=== PATIENT | male | born 1975 | race Caucasian/White ===

== ENCOUNTER 2017-04-27 16:30 | Emergency (ER) | payer SELFPAY ==
[2017-04-27 17:44] VITALS: BP 129/89
--- NOTE | 2017-04-27 20:32 | Emergency Department Report ---
ED Extremity Problem HPI - General Chief complaint: Extremity Problem,Nontraumatic Stated complaint: LEFT FOOT PAIN Time Seen by Provider: 04/27/17 20:12 Source: patient Mode of arrival: Ambulatory Limitations: No Limitations - History of Present Illness Initial comments: Patient is a 41-year-old male who is presenting with left lower extremity swelling patient has had some mild swelling at the ankle for approximately one month however he states that his leg has swollen a little last week dramatically patient has some red splotchiness on the leg. Patient states there is no pain management no trauma or injury. - Related Data Allergies Allergy/AdvReac Type Severity Reaction Status Date / Time No Known Allergies Allergy Unverified 04/27/17 17:38 ED Review of Systems ROS: Stated complaint: LEFT FOOT PAIN Other details as noted in HPI Comment: All other systems reviewed and negative ED Past Medical Hx - Past Medical History Hx CVA: (left side deficits) - Surgical History Past Surgical History?: No - Social History Smoking Status: Current Every Day Smoker Substance Use Type: Alcohol ED Physical Exam - General Limitations: No Limitations General appearance: alert, in no apparent distress - Head Head exam: Present: atraumatic, normocephalic - Eye Eye exam: Present: normal appearance - ENT ENT exam: Present: mucous membranes moist - Neck Neck exam: Present: normal inspection - Respiratory Respiratory exam: Present: normal lung sounds bilaterally. Absent: respiratory distress - Cardiovascular Cardiovascular Exam: Present: regular rate, normal rhythm. Absent: systolic murmur, diastolic murmur, rubs, gallop - GI/Abdominal GI/Abdominal exam: Present: soft, normal bowel sounds - Rectal Rectal exam: Present: deferred - Extremities Exam Extremities exam: Present: normal inspection, other (left lower extremity has 2 + edema to the calf ankle and foot. With some mild erythematous blotchy lesions ) - Back Exam Back exam: Present: normal inspection - Neurological Exam Neurological exam: Present: alert, oriented X3 - Psychiatric Psychiatric exam: Present: normal affect, normal mood - Skin Skin exam: Present: warm, dry, intact, normal color. Absent: rash ED Course Vital Signs 04/27/17 17:38 Temperature 98.5 F Pulse Rate 80 Respiratory 14 Rate Blood Pressure 129/89 O2 Sat by Pulse 99 Oximetry ED Medical Decision Making - Medical Decision Making Patient was seen after the time that the Dopplers can be done. Emergent department patient has a outpatient Doppler study ordered and will return tomorrow for this study Critical care attestation.: If time is entered above; I have spent that time in minutes in the direct care of this critically ill patient, excluding procedure time. ED Disposition Clinical Impression: Lower extremity edema Disposition: DC-01 TO HOME OR SELFCARE Is pt being admited?: No Does the pt Need Aspirin: No Condition: Stable Additional Instructions: An ultrasound with the vascular lab has been ordered they will call you in the morning to set up a time for you to get this study
[2017-04-27] MEDS ORDERED: LOVENOX SUB-Q SCH (22:00)
== END 2017-04-27 22:07 | disposition home or self-care (01) ==
LOC: ED 16:30
DX: R60.0 Localized edema (principal); F17.200 Nicotine dependence, unspecified, uncomplicated
CPT/HCPCS: 96372; 99282; J1650

== ENCOUNTER 2017-04-28 14:45 | Outpatient (CLI) | payer SELFPAY ==
--- NOTE | 2017-05-03 08:23 | Vascular Lab Report ---
Left Lower Extremity Venous Duplex Study: Reason for Exam: Pain and swelling of the left lower extremity. Comments on the Right: A limited duplex study was done of the proximal veins of the right lower extremity. All veins visualized are freely compressible without evidence of internal echogenicity. Flow is spontaneous and phasic throughout. No evidence of acute or chronic thrombus is seen in any of the vessels visualized. Comments on the Left: All veins visualized are freely compressible without evidence of internal echogenicity. Flow is spontaneous and phasic throughout. No evidence of acute or chronic thrombus is seen in any of the vessels visualized. Nonspecific soft tissue changes are seen in the left ankle. This may be a hematoma. Impression: No evidence of acute or chronic deep venous thrombosis in the left lower extremity. Possible hematoma around the left ankle.
== END 2017-04-28 14:46 | disposition home or self-care (01) ==
LOC: VAS 14:45
PROVIDERS: ATTEND Emergency Medicine
DX: M79.662 Pain in left lower leg (principal); R60.9 Edema, unspecified

== ENCOUNTER 2018-06-18 11:28 | Emergency (ER) | payer SELFPAY ==
[2018-06-18 11:40] VITALS: BP 136/93
--- NOTE | 2018-06-18 11:40 | Emergency Department Report ---
Blank Doc - Documentation Documentation: This is a 42-year-old male that presents to the ED with right sided head contu dick around 5 AM. STated had a trip and fall and now needs a work excuse. Denies any headache or pain. Patient has history of stroke. This initial assessment/diagnostic orders/clinical plan/treatment(s) is/are subject to change based on patient's health status, clinical progression and re- assessment by fellow clinical providers in the ED. Further treatment and workup at subsequent clinical providers discretion. Patient/guardians urged not to elope from the ED as their condition may be serious if not clinically assessed and managed. Initial orders include: 1- Patient sent to [facility] for further evaluation and treatment 2- CT head
--- NOTE | 2018-06-18 13:34 | Emergency Department Report ---
ED Fall HPI - General Chief Complaint: Fall Stated Complaint: RT SIDE HEAD PAIN Time Seen by Provider: 06/18/18 11:37 Source: patient Mode of arrival: Ambulatory - History of Present Illness Initial Comments: he is a 42-year-old male who presents to ED status post fall that happened this morning while his work. Patient states he was grabbing his lunch box and accidentally tripped and fell hitting his head on the floor. Patient denies any loss of consciousness. Patient states he was able to get up after incident. Patient denies headache, nausea, vomiting, blurred vision or dizziness. Patient states he feels fine and feels his normal self. Patient states that he was unable to continue working because work sent him home and he needs a work excuse to return back to work. Complaint: fall - Related Data Previous Rx's Medication Instructions Recorded Last Taken Type Ibuprofen [Motrin] 800 mg PO Q8HR #30 tablet 06/18/18 Unknown Rx Allergies Allergy/AdvReac Type Severity Reaction Status Date / Time No Known Allergies Allergy Verified 04/27/17 20:41 ED Review of Systems ROS: Stated complaint: RT SIDE HEAD PAIN Other details as noted in HPI Comment: All other systems reviewed and negative ED Past Medical Hx - Past Medical History Hx CVA: Yes (2017) - Surgical History Past Surgical History?: No - Social History Smoking Status: Never Smoker Substance Use Type: None - Medications Home Medications: Home Medications Medication Instructions Recorded Confirmed Last Taken Type Ibuprofen [Motrin] 800 mg PO Q8HR #30 tablet 06/18/18 Unknown Rx ED Physical Exam - General Limitations: No Limitations General appearance: alert, in no apparent distress - Head Head exam: Present: atraumatic, normocephalic, other (mild abrasion to the right front of head) - Eye Eye exam: Present: normal appearance, PERRL, EOMI Pupils: Present: normal accommodation - ENT ENT exam: Present: mucous membranes moist - Neck Neck exam: Present: normal inspection, full ROM. Absent: tenderness, lymphadenopathy - Respiratory Respiratory exam: Present: normal lung sounds bilaterally. Absent: respiratory distress - Cardiovascular Cardiovascular Exam: Present: regular rate, normal rhythm. Absent: systolic murmur, diastolic murmur, rubs, gallop - GI/Abdominal GI/Abdominal exam: Present: soft, normal bowel sounds - Rectal Rectal exam: Present: deferred - Extremities Exam Extremities exam: Present: normal inspection - Back Exam Back exam: Present: normal inspection - Neurological Exam Neurological exam: Present: alert, oriented X3, CN II-XII intact, normal gait. Absent: motor sensory deficit - Expanded Neurological Exam Expanded Patient oriented to: Present: person, place, time Speech: Present: fluid speech Cerebellar function: Finger to Nose: Normal Sensory exam: Upper Extremity Light Touch: Normal, Lower Extremity Light Touch: Normal Motor strength exam: RUE: 5, LUE: 5, RLE: 5, LLE: 5 Best Eye Response (Loraine): (4) open spontaneously Best Motor Response (Amalia): (6) obeys commands Best Verbal Response (Loraine): (5) oriented Amalia Total: 15 - Psychiatric Psychiatric exam: Present: normal affect, normal mood - Skin Skin exam: Present: warm, dry, intact, normal color. Absent: rash ED Course Vital Signs 06/18/18 11:37 Temperature 98.2 F Pulse Rate 96 H Respiratory 20 Rate Blood Pressure 136/93 O2 Sat by Pulse 99 Oximetry ED Medical Decision Making - Medical Decision Making This is a 42-year-old male who presents status post fall at work today. Patient had a ground-level fall. Patient has no neurological deficit. 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 I did discuss signs and symptoms to watch for. Patient understands and states that if he starts to feel any symptoms or such as headache, nausea, vomiting or blurred vision he will return to the ED immediately. Patient is stable and neurologically intact and understands instructions. Critical care attestation.: If time is entered above; I have spent that time in minutes in the direct care of this critically ill patient, excluding procedure time. ED Disposition Clinical Impression: Fall Disposition: DC-01 TO HOME OR SELFCARE Is pt being admited?: No Does the pt Need Aspirin: No Condition: Stable Instructions: Contusion in Adults (ED), Abrasion (ED) Additional Instructions: Make sure to follow up with the primary care physician as discussed. Take all your medications as you've been prescribed. If you have any worsening symptoms or develop new symptoms please return to ED immediately. Prescriptions: Ibuprofen [Motrin] 800 mg PO Q8HR #30 tablet Referrals: EUSEBIA GONZALEZ MD [Primary Care Provider] - 3-5 Days Forms: Accompanied Note, Work/School Release Form(ED) Time of Disposition: 13:33
== END 2018-06-18 13:48 | disposition home or self-care (01) ==
LOC: ED 11:28
DX: S00.81XA Abrasion of other part of head, initial encounter (principal); W01.0XXA Fall on same level from slipping, tripping and stumbling without subsequent striking against object, initial encounter; Y93.89 Activity, other specified; Y92.89 Other specified places as the place of occurrence of the external cause; Y99.8 Other external cause status
CPT/HCPCS: 99282